=== PATIENT | male | born 1945 | race Caucasian/White ===

== ENCOUNTER 2023-10-29 10:19 | Outpatient (OUT) | payer MEDICARE, SELFPAY ==
--- NOTE | 2023-10-29 10:28 | VEIN_ITS ---
Patient Name: ANABEL MONTES MR#: [id number] : 1945 Exam Date: 10/29/2023 Ordering Doctor: DR AXEL LOPEZ D.P.M. RADIOLOGY REPORT PROCEDURE: VC EXT VENOUS REFLUX KAYLYN LMTD COMPARISON: None. INDICATIONS: Venous insufficiency I87.2 TECHNIQUE: Duplex imaging of the lower extremity to assess the deep and superficial venous system for the presence of deep or superficial venous incompetence and to document the location and severity of disease. The study includes evaluation of the great saphenous vein (GSV), anterior accessory saphenous vein (AASV) and small saphenous vein (SSV). Patient scanned in reverse Trendelenburg and standing. FINDINGS: RIGHT LOWER EXTREMITY: Saphenofemoral Junction Reflux: Yes 6.6mm 1.3 sec GSV: Diam (mm) Reflux/ Time (sec) Proximal Thigh 8.7 Yes 1.6 Mid Thigh 3.3 Yes 0.5 Distal Thigh 2.4 No Prox Calf 2.3 Yes 0.4 Mid Calf 2.1 Yes 0.4 Saphenopopliteal Junction Reflux: 2.4mm Yes 0.3 SSV: Proximal Calf 2.1 No Mid Calf 2.1 Yes 0.3 AASV: Not present Proximal Thigh Mid Thigh Distal Thigh Thrombi: No acute or chronic thrombus. Compressibility: Normal. Flow: Severe deep venous reflux. Preforator: None. Tech Note: Significant edema noted. Limited visualization of calf veins due to edema. No significant varicose veins. 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 Compressibility: Partial compression of popliteal vein. Flow: Moderate to severe deep venous reflux. Operating System Designer: Mid lateral lower leg near wound measures 6.9 mm with 0.5s reflux. Tech Note: Limited visualization of calf veins due to significant edema. Incompetent varicose vein mid medial lower leg measures 4.3 mm with 0.4s reflux. CONCLUSION: 1. Mildly dilated and incompetent left great saphenous vein. 2. Dilated incompetent lower left leg cemetery vault installer vein near wound. 3. Extensive subcutaneous edema significantly limiting evaluation, particularly of the cemetery vault installer vein. Dictated by: Chirag Rosas M.D. on 10/29/2023 at 12:00 Approved by: Chirag Rosas M.D. on 10/29/2023 at 12:20
--- NOTE | 2023-10-29 10:28 | VEIN_ITS ---
Patient Name: ANABEL MONTES MR#: [id number] : 1945 Exam Date: 10/29/2023 Ordering Doctor: DR AXEL LOPEZ D.P.M. RADIOLOGY REPORT PROCEDURE: [facility] - OFFICE VISIT INITIAL COMPARISON: None. PROGRESS NOTES: [age] year old male who presents with a 2 year history of bilateral lower extremity pain, itching, heaviness, swelling and lower left leg ulceration. The patient's left leg symptoms are worse than the right. There has been a progression of symptoms over time. This increases with prolonged leg dependency and simply having is legs unwrapped. The patient describes an improvement with compression wrapping small and elevation. The patient denies any signs and symptoms to suggest arterial ischemia. The patient describes a family history : Noncontributory. The patient has drinking and smoking history of : 2-3 beers per day; no tobacco use. Patient has a past medical history significant for diabetes mellitus type 2, lymphedema, cellulitis and abscess, hypertension, DVT 2012. See separate history and physical for medication list. No prior treatment for varicose or spider veins. Current use of compression wrapping some. After review of nurse notes, history and physical exam I discussed at length the pathophysiology of venous hypertension and possible treatments, therapies and strategies available. We discussed at length the importance of elevating the lower extremities above the level of the heart, increased physical activity and compression stocking use. Ultrasound venous reflux study performed today was discussed at length with the patient. The report demonstrates mildly dilated and incompetent left great saphenous vein and distal left lower extremity incompetent programs manager vein near wound. Evaluation was limited due to marked subcutaneous edema. No abnormal superficial vein dilation or reflux within the right lower extremity. PHYSICAL EXAM: The right leg demonstrates no visible varicosities, a few small spider veins, no ulceration, marked edema, distal lower extremity skin discoloration. The left leg demonstrates no visible varicosities, a few small spider veins, lower leg ulceration, extensive marked edema, distal lower extremity skin discoloration. Both thighs, legs and feet were symmetrically warm to the touch. Good posterior tibial and dorsalis pedis pulses were present bilaterally. [facility] IMPRESSION: 1. Mild left great saphenous vein venous insufficiency 2. A few left leg lower extremity varicose veins; but evaluation is limited due to marked edema. 3. Marked bilateral lower extremity subcutaneous edema; left greater than right 4. No flow significant arterial disease; atherosclerotic plaque bilaterally. 5. CEAP: C6, AP, AP, ND PLAN: 1. Continued use of compression stockings 2. Elevated legs and increased physical activity symptomatic relief 3. Referral to lymphedema clinic. 4. With removal of some of the extensive edema within the left lower extremity, the left great saphenous vein and incompetent programs manager vein could be treated. Patient seemed reluctant to consider vein treatment. Nurse notes, history and physical were reviewed and confirmed, see attached forms. The nurse was present throughout the physical exam and consultation Dictated by: Chirag Rosas M.D. on 10/29/2023 at 12:42 Approved by: Chirag Rosas M.D. on 10/29/2023 at 12:51
== END 2023-10-29 10:20 | disposition home or self-care (01) ==
PROVIDERS: PCP Podiatrist Foot & Ankle Surgery; Visit Provider Podiatrist Foot & Ankle Surgery
DX: I83.813 Varicose veins of bilateral lower extremities with pain (principal)
CPT/HCPCS: 93970; G0463